=== PATIENT | male | born 1990 | race Caucasian/White ===

== ENCOUNTER 2017-03-18 18:12 | Emergency (ER) | payer OTHER ==
[~2017-03-18] VITALS: Ht 182.9 cm; Wt 114.4 kg
[2017-03-18 18:26] VITALS: TEMP 37; Ht 182.9 cm; Wt 114.4 kg
[2017-03-18] MEDS ORDERED: ONDANSETRON INJ 2 MG/ML 2 ML VIAL IV STA (19:09)
[2017-03-18] MEDS ORDERED: SODIUM CHLORIDE 0.9% 1000ML 1,000 ML IV STA (19:09)
[2017-03-18] MEDS ORDERED: MULT-506 PO (19:23)
[2017-03-18] MEDS ORDERED: LORA10TA5 PO (19:23)
[2017-03-18 19:32] LABS: BASO % 0.5 %; BASO ABS # 0.05 K/uL (0-0.2); COMPLETE YES; EOS % 1.1 %; HEMATOCRIT 48.4 % (42-52); IG% 0.3 %; LYMPH ABS # 2.92 K/uL (1.2-3.4); MEAN CELL VOLUME 85.5 fL (80-100); MEAN CORPUSCULAR HEMOGLOBIN 30.7 pg (25-34); MEAN PLATELET VOLUME 10.1 fL (7.4-10.4); MONO % 9.9 %; NEUT % 61.2 %; PLATELET COUNT 315 K/uL (130-400); RED BLOOD COUNT 5.66 M/uL (4.7-6.1)
[2017-03-18 19:47] LABS: BUN/CREATININE RATIO 13.3 (10-20); POTASSIUM 4.3 mmol/L (3.5-5.1)
--- NOTE | 2017-03-18 19:47 | DIAGNOSTIC IMAGING REPORT ---
CHEST ONE VIEW PORTABLE CLINICAL HISTORY: CHEST PAIN pain COMPARISON STUDY: No previous studies for comparison. FINDINGS: The bones soft tissues and hemidiaphragms are normal. The cardiomediastinal silhouette is normal. The lungs are clear. The pulmonary vasculature is normal. IMPRESSION: Negative chest. Electronically signed by: Toñito Oliveira M.D. 03/18/2017 7:46 PM Dictated Date/Time: 03/18/2017 7:45 PM
[2017-03-18 19:49] LABS: URINE APPEARANCE CLEAR (CLEAR); URINE BILIRUBIN NEG (NEG); URINE COLOR YELLOW; URINE NITRITE NEG (NEG); URINE PH 5.5 (4.5-7.5); URINE SPECIFIC GRAVITY 1.021 (1.000-1.030); UROBILINOGEN NEG (NEG)
[2017-03-18 19:51] LABS: MANUAL MICROSCOPIC REQUIRED? NO; REVIEW REQ? NO
[2017-03-18 19:57] LABS: THYROID STIMULATING HORMONE 2.92 uIu/ml (0.300-4.500)
[2017-03-18 21:11] VITALS: BP 134/88; PULSE 82; O2SAT 98
--- NOTE | 2017-03-19 01:13 | EMERGENCY ROOM VISIT NOTE ---
ED Visit Note First contact with patient: 18:30 Chief Complaint: Headache, lightheaded, nausea and fatigue. History of Present Illness: Mr. Mccollum is a 27-year-old white male who ambulates into the ED accompanied by a female friend complaining of a headache, lightheadedness, nausea and fatigue. Patient reports he has been having intermittent headaches and lightheadedness for approximately one month. He has not followed up with his primary care physician for his symptoms. Patient reports his lightheadedness, nausea and headache exacerbated approximately 4 hours ago and has been constant since. He describes his headache sensation as a throbbing sensation. The headache is global. He has not identified any aggravating or alleviating factors related to his headache. He reports he has not taken any medication for headache prior to arrival at the hospital. Associated with his headache he reports she's been having multiple symptoms but he does report today he had an episode where he felt like he was having a fever and then became diaphoretic, he has been lightheaded especially with head movements and also reports he has been having dizziness with room spinning sensation, he has been nauseated but has not vomited and he is feeling fatigued. He denies skin eruptions, skin color changes, recent head trauma, neck pain/ stiffness, upper respiratory tract symptoms, visual changes, hearing changes, difficulty speaking, difficulty swallowing, difficulty ambulating/coordinating body movements, chest pain, shortness of breath, abdominal pain, extremity weakness/numbness/tingling. Review of Systems: As noted above in history of present illness. All body systems were reviewed and found to be negative as noted above. Past Medical History: Borderline hypertension. Current Medications: Claritin, multivitamins. Allergies to Medications: Patient denies. Social History: Patient is currently employed; he feels safe in his home environment; he denies tobacco and alcohol use. Physical Examination: Vital Signs: Date Time Temp Pulse Resp B/P Pulse Ox O2 Delivery O2 Flow Rate FiO2 03/18/17 21:11 82 18 134/88 98 Room Air 03/18/17 19:29 70 18 160/103 98 Room Air 74 149/103 77 166/79 03/18/17 18:45 63 03/18/17 18:26 37.0 66 18 158/93 99 Room Air GENERAL: 27-year-old male in mild to moderate distress due to symptoms, nontoxic -appearing, afebrile and hemodynamically stable. NEUROLOGICAL: Awake, alert and oriented to person, place and time. Answering questions appropriately and following commands. Normal gait. Good hand eye coordination. No focal motor or sensory deficits. Cranial nerves II through XII grossly intact. Esteban term and long-term recall. SKIN: Warm, dry and pink. No soft tissue eruptions or trauma noted. HEENT: Atraumatic and normocephalic. No erythema or tenderness over the phone or maxillary sinuses. External ears are nontender. Auditory canals are pink and patent. Tympanic membranes pearly ken with normal light reflex. No signs of infection or inflammation. PERRLA. EOMI without nystagmus. Funduscopic examination is unremarkable with a normal-appearing optic disc and no signs of increased intracranial pressure. No signs of hypertension changes. Sclera white and conjunctiva pink. No drainage from naris. Oral cavity moist and pink. Pharynx is nonerythematous or edematous. Speech normal. No lymphadenopathy. Trachea midline. No jugular venous distention. No carotid bruits. BACK: No tenderness over the bony spine. No CVA tenderness. THORAX: Lungs sounds are clear to auscultation and equal bilaterally with symmetrical chest wall. No wheezing, rales or rhonchi. No crepitus, tenderness , subcutaneous air or deformities noted. HEART: Regular rate and rhythm. No gallops, rubs or murmurs are appreciated. PMI is not displaced. No lifts, heaves or thrills. ABDOMEN: Flat, soft and nontender. Positive bowel sounds in all quadrants. No guarding, rigidity or organomegaly. EXTREMITIES: Moves all extremities well on command and with purpose. All distal neurovascular statuses are intact and equal bilaterally. No calf tenderness or cords. ED Course: Patient is assessed as noted above. Laboratory Testing: Test 03/18/17 18:45 03/18/17 19:35 03/18/17 19:37 Range/Units White Blood Count 10.80 4.8-10.8 K/uL Red Blood Count 5.66 4.7-6.1 M/uL Hemoglobin 17.4 14.0-18.0 g/dL Hematocrit 48.4 42-52 % Mean Corpuscular Volume 85.5 80-100 fL Mean Corpuscular Hemoglobin 30.7 25-34 pg Mean Corpuscular Hemoglobin Concent 36.0 32-36 g/dl Platelet Count 315 130-400 K/uL Mean Platelet Volume 10.1 7.4-10.4 fL Neutrophils (%) (Auto) 61.2 % Lymphocytes (%) (Auto) 27.0 % Monocytes (%) (Auto) 9.9 % Eosinophils (%) (Auto) 1.1 % Basophils (%) (Auto) 0.5 % Neutrophils # (Auto) 6.61 1.4-6.5 K/uL Lymphocytes # (Auto) 2.92 1.2-3.4 K/uL Monocytes # (Auto) 1.07 0.11-0.59 K/uL Eosinophils # (Auto) 0.12 0-0.5 K/uL Basophils # (Auto) 0.05 0-0.2 K/uL RDW Standard Deviation 39.2 36.4-46.3 fL RDW Coefficient of Variation 12.5 11.5-14.5 % Immature Granulocyte % (Auto) 0.3 % Immature Granulocyte # (Auto) 0.03 0.00-0.02 K/uL Sodium Level 142 136-145 mmol/L Potassium Level 4.3 3.5-5.1 mmol/L Chloride Level 106 98-107 mmol/L Carbon Dioxide Level 29 21-32 mmol/L Anion Gap 7.0 3-11 mmol/L Blood Urea Nitrogen 13 7-18 mg/dl Creatinine 1.00 0.60-1.40 mg/dl Est Creatinine Clear Calc Drug Dose 142.3 ml/min Estimated GFR () 117.4 Estimated GFR (Non- 101.3 BUN/Creatinine Ratio 13.3 10-20 Random Glucose 87 70-99 mg/dl Calcium Level 9.0 8.5-10.1 mg/dl Total Bilirubin 0.4 0.2-1 mg/dl Direct Bilirubin 0.1 0-0.2 mg/dl Aspartate Amino Transf (AST/SGOT) 23 15-37 U/L Alanine Aminotransferase (ALT/SGPT) 55 12-78 U/L Alkaline Phosphatase 98 45-117 U/L Total Protein 7.9 6.4-8.2 gm/dl Albumin 4.5 3.4-5.0 gm/dl Thyroid Stimulating Hormone (TSH) 2.920 0.300-4.500 uIu/ml Urine Color YELLOW Urine Appearance CLEAR CLEAR Urine pH 5.5 4.5-7.5 Urine Specific [place] 1.021 1.000-1.030 Urine Protein NEG NEG Urine Glucose (UA) NEG NEG Urine Ketones NEG NEG Urine Occult Blood NEG NEG Urine Nitrite NEG NEG Urine Bilirubin NEG NEG Urine Urobilinogen NEG NEG Urine Leukocyte Esterase NEG NEG Bedside Troponin I 0.000 0-0.045 ng/ml EKG: Was read by myself and Dr. Mckeon; shows normal sinus rhythm with sinus arrhythmia. Ventricular rate 68 bpm. Normal axis, intervals and complexes. No acute ST changes indicating ischemia, injury or infarction. Medical records were reviewed and no additional EKGs were found for comparison. Chest X-Ray: Was read by myself and the radiologist and shows no acute infiltrates, effusions or pneumothorax. Normal heart silhouette and bony anatomy. Patient was hydrated with normal saline and received 4 mg of Zofran IV for nausea. Patient was reassessed multiple times during his stay in the emergency department. Patient's case was reviewed with Dr. Mckeon; we agreed on diagnostic approach, treatment, disposition and plan. Patient was educated about today's findings and instructed on his treatment plan ; he verbalizes understanding and agreement with this plan. Clinical Impression: Hypertension. Dizziness. Nausea. Headache. Decision-Making: Initially my differential diagnosis I considered intracranial bleed, mass effect, intracranial swelling, injury or infection, hypertension, migraine equivalent, meningitis, and other concerning conditions. Disposition: Patient discharged home in stable condition; prior to departure he was reassessed and subjectively reported he had resolution of headache and nausea but still felt slightly dizzy. Plan: Patient was encouraged to stay well hydrated. Patient was encouraged use ibuprofen or acetaminophen as needed for pain. Patient was encouraged to follow-up with his PCP for recheck and further evaluation of his hypertension. Patient was encouraged return the ED for worsening symptoms, any new abnormal neurological symptoms or any new/concerning symptoms.
== END 2017-03-18 21:17 | disposition home or self-care (01) ==
LOC: C.EDB 18:14
DX: I10 Essential (primary) hypertension (principal); R42 Dizziness and giddiness; R11.0 Nausea; R51 Headache

== ENCOUNTER 2017-04-08 21:48 | Emergency (ER) | payer OTHER ==
[~2017-04-08] VITALS: Ht 182.9 cm; Wt 111.5 kg
[~2017-04-08 21:48] MED LIST: LORA10TA5 PO; MULT-506 PO
[2017-04-08 21:52] VITALS: TEMP 37; Ht 182.9 cm; Wt 111.5 kg
[2017-04-08 22:07] VITALS: O2SAT 97
[2017-04-08] MEDS ORDERED: LISI-461 PO (22:39)
[2017-04-08 22:41] LABS: BASO % 0.3 %; BASO ABS # 0.04 K/uL (0-0.2); COMPLETE YES; EOS % 0.6 %; HEMATOCRIT 46.2 % (42-52); IG% 0.2 %; LYMPH % 23.6 %; LYMPH ABS # 2.97 K/uL (1.2-3.4); MEAN CELL VOLUME 85.1 fL (80-100); MEAN CORPUSCULAR HEMOGLOBIN 30.4 pg (25-34); MEAN CORPUSCULAR HGB CONC 35.7 g/dl (32-36); MEAN PLATELET VOLUME 9.1 fL (7.4-10.4); MONO % 9.7 %; NEUT % 65.6 %; PLATELET COUNT 324 K/uL (130-400); RED BLOOD COUNT 5.43 M/uL (4.7-6.1)
[2017-04-08 22:59] LABS: ALT/SGPT 55 U/L (12-78); BLOOD UREA NITROGEN 14 mg/dl (7-18); BUN/CREATININE RATIO 10.8 (10-20); CARBON DIOXIDE 25 mmol/L (21-32); CHLORIDE 105 mmol/L (98-107); GLUCOSE 96 mg/dl (70-99); POTASSIUM 3.8 mmol/L (3.5-5.1); SODIUM 142 mmol/L (136-145)
[2017-04-08 23:01] LABS: CALCIUM 8.8 mg/dl (8.5-10.1)
[2017-04-08 23:10] LABS: ALKALINE PHOSPHATASE 79 U/L (45-117); AST/SGOT 22 U/L (15-37)
--- NOTE | 2017-04-08 23:13 | DIAGNOSTIC IMAGING REPORT ---
CT OF THE HEAD WITHOUT CONTRAST CLINICAL HISTORY: Weakness. Dizziness. COMPARISON STUDY: No previous studies for comparison. CT DOSE: 614.27 mGy.cm TECHNIQUE: Helical axial images of the head were obtained without IV contrast. Automated exposure control was utilized for the study. FINDINGS: No acute intracranial hemorrhage, midline shift or mass effect is present. Ventricular system is normal. Basilar cisterns are patent. There are no extra-axial collections. Lyon-white differentiation is maintained. There are no findings to suggest acute dural sinus thrombosis or acute territorial infarct. There are no calvarial abnormalities. Visualized portions of the sinuses and the mastoid air cells are clear. IMPRESSION: No acute intracranial findings. Electronically signed by: Denis Cox M.D. 04/08/2017 11:11 PM Dictated Date/Time: 04/08/2017 11:09 PM
[2017-04-08 23:30] LABS: URINE APPEARANCE CLEAR (CLEAR); URINE BILIRUBIN NEG (NEG); URINE COLOR YELLOW; URINE NITRITE NEG (NEG); UROBILINOGEN NEG (NEG)
[2017-04-08 23:33] LABS: MANUAL MICROSCOPIC REQUIRED? NO; REVIEW REQ? NO
[2017-04-09 00:02] VITALS: BP 140/80; PULSE 78; O2SAT 99
--- NOTE | 2017-04-09 01:19 | EMERGENCY ROOM VISIT NOTE ---
History Report prepared by Jacki: Delaney Mclain Under the Supervision of: Dr. Pako Mckeon D.O. First contact with patient: 22:15 Chief Complaint: DIZZY Stated Complaint: LIGHTHEADED,DIZZY,CHESTPAIN,HEAVY FEELING,NAUSEA,C Nursing Triage Summary: c/o high blood pressure. c/o feeling dizzy at time today. History of Present Illness The patient is a 27 year old male who presents to the Emergency Room with complaints of persistent dizziness starting 2 months ago. The dizziness worsens when he moves his head. The patient was in the ED 1 month ago with high blood pressure. He followed up with his PCP and was started on lisinopril. His blood pressure has been under control since then, but the past weekend his blood pressure has been elevated. 2 days ago, he started having SOB. He also has a nonproductive cough. Today around 1600 he started having chest heaviness. He was just sitting when it started. There is also an intermittent stabbing pain on his right chest. His chest pain worsens with exhaling. Nothing improves his chest pain. He denies any ringing in his ears, changes in vision, calf swelling , weakness, numbness, or rhinorrhea. He denies any recent surgery, travel, estrogen use, or smoking. He denies any history of cancer, blood clots, diabetes , high cholesterol, or heart disease. He denies any family history of sudden . Source of History: patient Onset: 2 months ago Position: other (global) Quality: other (dizziness) Timing: other (persistent) Modifying Factors (Worsening): other (moving head) Associated Symptoms: + cough, + chest pain, + SOB, No weakness, No numbness Note: Pt reports high blood pressure. Pt denies ringing in ears, vision changes, calf swelling, rhinorrhea. Review of Systems See HPI for pertinent positives & negatives. A total of 10 systems reviewed and were otherwise negative. Past Medical & Surgical Medical Problems: (1) Hypertension Family History Diabetes mellitus Hypertension Social History Smoking Status: Never Smoker Housing Status: lives alone Occupation Status: employed Current/Historical Medications Scheduled Lisinopril (Zestril), 10 MG PO DAILY Multivitamin (Multivitamin), 1 TAB PO DAILY Scheduled PRN Loratadine (Claritin), 10 MG PO DAILY PRN for Allergy Symptoms Allergies Coded Allergies: No Known Allergies (Unverified , 03/18/17) Physical Exam Vital Signs Date Time Temp Pulse Resp B/P (MAP) Pulse Ox O2 Delivery O2 Flow Rate FiO2 04/09/17 00:02 78 18 140/80 99 Room Air 04/08/17 23:17 81 18 143/88 96 Room Air 04/08/17 22:47 74 18 133/92 98 Room Air 04/08/17 22:46 68 18 134/76 74 133/92 83 147/86 04/08/17 22:09 68 04/08/17 22:08 68 18 147/101 98 Room Air 04/08/17 22:07 97 Room Air 04/08/17 21:52 37.0 68 18 168/81 100 Room Air Physical Exam GENERAL: sitting up in bed, disheveled, no acute distress, nontoxic EYE EXAM: normal conjunctiva, PERRL and EOM's intact OROPHARYNX: no exudate, no erythema, lips, buccal mucosa, and tongue normal and mucous membranes are moist NECK: supple, no nuchal rigidity, no adenopathy, non-tender LUNGS: Clear to auscultation. Normal chest wall mechanics HEART: no murmurs, S1 normal and S2 normal ABDOMEN: abdomen soft, non-tender, normo-active bowel sounds, no masses, no rebound or guarding. BACK: Back is symmetrical on inspection and there is no deformity, no midline tenderness, no CVA tenderness. SKIN: no rashes and no bruising UPPER EXTREMITIES: upper extremities are grossly normal. LOWER EXTREMITIES: No pitting edema. NEURO EXAM: Normal sensorium, cranial nerves II-XII intact, normal speech, no weakness of arms, no weakness of legs. No drift. Finger to nose intact. Gross sensation intact. Medical Decision & Procedures ER Provider Diagnostic Interpretation: Radiology results as stated below per my review and the radiologist's interpretation: CT OF THE HEAD WITHOUT CONTRAST CLINICAL HISTORY: Weakness. Dizziness. COMPARISON STUDY: No previous studies for comparison. CT DOSE: 614.27 mGy.cm TECHNIQUE: Helical axial images of the head were obtained without IV contrast. Automated exposure control was utilized for the study. FINDINGS: No acute intracranial hemorrhage, midline shift or mass effect is present. Ventricular system is normal. Basilar cisterns are patent. There are no extra-axial collections. Lyon-white differentiation is maintained. There are no findings to suggest acute dural sinus thrombosis or acute territorial infarct. There are no calvarial abnormalities. Visualized portions of the sinuses and the mastoid air cells are clear. IMPRESSION: No acute intracranial findings. Electronically signed by: Denis Cox M.D. 04/08/2017 11:11 PM Dictated Date/Time: 04/08/2017 11:09 PM Laboratory Results 04/08/17 22:10 Red Blood Count 5.43, Mean Corpuscular Volume 85.1, Mean Corpuscular Hemoglobin 30.4, Mean Corpuscular Hemoglobin Concent 35.7, Mean Platelet Volume 9.1, Neutrophils (%) (Auto) 65.6, Lymphocytes (%) (Auto) 23.6, Monocytes (%) (Auto) 9.7, Eosinophils (%) (Auto) 0.6, Basophils (%) (Auto) 0.3, Neutrophils # (Auto) 8.27, Lymphocytes # (Auto) 2.97, Monocytes # (Auto) 1.22, Eosinophils # (Auto) 0.08, Basophils # (Auto) 0.04 04/08/17 22:10 Test 04/08/17 22:10 04/08/17 23:15 White Blood Count 12.60 K/uL (4.8-10.8) Red Blood Count 5.43 M/uL (4.7-6.1) Hemoglobin 16.5 g/dL (14.0-18.0) Hematocrit 46.2 % (42-52) Mean Corpuscular Volume 85.1 fL (80-100) Mean Corpuscular Hemoglobin 30.4 pg (25-34) Mean Corpuscular Hemoglobin Concent 35.7 g/dl (32-36) Platelet Count 324 K/uL (130-400) Mean Platelet Volume 9.1 fL (7.4-10.4) Neutrophils (%) (Auto) 65.6 % Lymphocytes (%) (Auto) 23.6 % Monocytes (%) (Auto) 9.7 % Eosinophils (%) (Auto) 0.6 % Basophils (%) (Auto) 0.3 % Neutrophils # (Auto) 8.27 K/uL (1.4-6.5) Lymphocytes # (Auto) 2.97 K/uL (1.2-3.4) Monocytes # (Auto) 1.22 K/uL (0.11-0.59) Eosinophils # (Auto) 0.08 K/uL (0-0.5) Basophils # (Auto) 0.04 K/uL (0-0.2) RDW Standard Deviation 37.7 fL (36.4-46.3) RDW Coefficient of Variation 12.2 % (11.5-14.5) Immature Granulocyte % (Auto) 0.2 % Immature Granulocyte # (Auto) 0.02 K/uL (0.00-0.02) D-Dimer < 190 ug/L FEU (0-500) Anion Gap 12.0 mmol/L (3-11) Est Creatinine Clear Calc Drug Dose 108.1 ml/min Estimated GFR () 85.5 Estimated GFR (Non- 73.7 BUN/Creatinine Ratio 10.8 (10-20) Calcium Level 8.8 mg/dl (8.5-10.1) Total Bilirubin 0.7 mg/dl (0.2-1) Direct Bilirubin 0.1 mg/dl (0-0.2) Aspartate Amino Transf (AST/SGOT) 22 U/L (15-37) Alanine Aminotransferase (ALT/SGPT) 55 U/L (12-78) Alkaline Phosphatase 79 U/L (45-117) Troponin I < 0.015 ng/ml (0-0.045) Total Protein 7.9 gm/dl (6.4-8.2) Albumin 4.2 gm/dl (3.4-5.0) Thyroid Stimulating Hormone (TSH) 2.380 uIu/ml (0.300-4.500) Urine Color YELLOW Urine Appearance CLEAR (CLEAR) Urine pH 5.0 (4.5-7.5) Urine Specific [place] 1.020 (1.000-1.030) Urine Protein NEG (NEG) Urine Glucose (UA) NEG (NEG) Urine Ketones TRACE (NEG) Urine Occult Blood NEG (NEG) Urine Nitrite NEG (NEG) Urine Bilirubin NEG (NEG) Urine Urobilinogen NEG (NEG) Urine Leukocyte Esterase NEG (NEG) Laboratory results per my review. ECG Indication: chest pain Rate (beats per minute): 66 Rhythm: sinus rhythm Findings: no ectopy, other (poor baseline in inferior leads) ED Course ED COURSE: Vital signs were reviewed and showed hypertension. The patients medical record was reviewed The above diagnostic studies were performed and reviewed. ED treatments and interventions as stated above. 2219: The patient was evaluated in room C8. A complete history and physical examination was performed. 2352: Upon reevaluation, the patient is resting comfortably.I discussed my findings with the patient and he understands and agrees with the treatment plan. Based on the patients age, coexisting illnesses, exam and lab findings the decision to treat as an outpatient was made. The patient remained stable while under my care. The patient appeared well at the time of discharge. Medical Decision Differenital diagnosis includes etiologies such as benign positional vertigo, dehydration, hypovolemia, anemia, tumor, infection, hypoglycemia, electrolyte abnormalities, cardiac sources, intracerebral event, toxicologic, neurologic, as well as others were entertained. Medication Reconciliation: I attest that I have personally reviewed the patient' s current medication list. Blood pressure screening: Patient was found to have an elevated blood pressure and was referred to their primary doctor for recheck and further treatment. Patient is a 27-year-old male who presents the ER for feeling dizzy/ lightheadedness which has been coming and going for the past 2 months. He notes his head feels a little bit of a pressure. He does admit to some right- sided chest pain which is worse with breathing. He has a history of hypertension. Patient denies a history of diabetes, CAD, hyperlipidemia, or sudden with family at a young age. He also denies smoking, recent travel , recent surgeries, previous blood clots, history cancer, or estrogen use. Patient was fully neurologically intact on exam. He was slightly hypertensive in the 140s. CT head was negative. CBC along with BMP, LFTs, bilirubin and troponin were negative. EKG was unremarkable. TSH was normal. UA was negative. D-dimer was negative. Patient was discharged follow-up with his primary care doctor. I do not feel need to treat his blood pressure is a was only in the 140s. He was completely neurologically intact. Do not believe this stroke. No signs of meningitis or encephalitis. Discussed with Pt concerning signs and symptoms to watch out for. Pt was instructed to follow up with their PCP and discussed with the patient their option to return to the ED at anytime for persistent or worsening symptoms. The appropriate anticipatory guidance and out-patient management, including indications for return to the emergency department, were explained at length to the patient and understood. Impression Primary Impression: Dizziness Additional Impression: Hypertension Scribe Attestation The scribe's documentation has been prepared under my direction and personally reviewed by me in its entirety. I confirm that the note above accurately reflects all work, treatment, procedures, and medical decision making performed by me. Departure Information Dispostion Home / Self-Care Referrals Tuan Whitehead M.D. (PCP) Forms HOME CARE DOCUMENTATION FORM, IMPORTANT VISIT INFORMATION Patient Instructions ED Dizziness O, My [facility] Additional Instructions Please follow up with your primary care doctor or if you are a student [facility] [employer] with in the next 24 hours. Any worsening of your symptoms, please return to the ED immediately. This includes fevers greater than 100.4, stiff neck, passing out, new or worsening shortness of breath, new or worsening chest pain, or any other concerning signs or symptoms from your standpoint. Please continue your current medications as previously prescribed. Problem Qualifiers Additional Impression: Hypertension Hypertension type: unspecified secondary hypertension Qualified Codes: I15.9 - Secondary hypertension, unspecified
== END 2017-04-09 00:02 | disposition home or self-care (01) ==
LOC: C.EDB 21:49 → C.EDC 04-09 00:02
DX: R42 Dizziness and giddiness (principal); I15.9 Secondary hypertension, unspecified; R06.02 Shortness of breath; Z83.3 Family history of diabetes mellitus; Z82.49 Family history of ischemic heart disease and other diseases of the circulatory system

== ENCOUNTER 2017-04-13 02:19 | Emergency (ER) | payer OTHER ==
[~2017-04-13] VITALS: Ht 182.9 cm; Wt 114.4 kg
[~2017-04-13 02:19] MED LIST changes: +LISI-461 PO
[2017-04-13 02:25] VITALS: TEMP 36.5; Ht 182.9 cm; Wt 114.4 kg
[2017-04-13] MEDS ORDERED: MoRPHine SULFATE 10 MG/ML CARP/VIAL IV STA (03:02)
[2017-04-13 03:38] LABS: BASO % 0.3 %; BASO ABS # 0.04 K/uL (0-0.2); COMPLETE YES; EOS % 0.1 %; HEMATOCRIT 45.1 % (42-52); IG% 0.9 %; LYMPH ABS # 2.32 K/uL (1.2-3.4); MEAN CELL VOLUME 85.3 fL (80-100); MEAN CORPUSCULAR HEMOGLOBIN 31.4 pg (25-34); MEAN CORPUSCULAR HGB CONC 36.8 g/dl (32-36); MEAN PLATELET VOLUME 9.7 fL (7.4-10.4); MONO % 6.6 %; NEUT % 77.1 %; PLATELET COUNT 321 K/uL (130-400); RED BLOOD COUNT 5.29 M/uL (4.7-6.1); WHITE BLOOD COUNT 15.49 K/uL (4.8-10.8)
[2017-04-13 04:16] LABS: BENZODIAZEPINE, URINE NEG (NEG); COCAINE,URINE NEG (NEG); PHENCYCLIDINE, URINE NEG (NEG)
[2017-04-13 06:09] VITALS: BP 140/82; O2SAT 97
[2017-04-13 06:11] VITALS: PULSE 67
[2017-04-13 06:17] LABS: ISTAT CREATININE 0.9 mg/dl (0.6-1.3); ISTAT IONIZED CALCIUM 1.21 mmol/l (1.12-1.32)
--- NOTE | 2017-04-13 06:35 | EMERGENCY ROOM VISIT NOTE ---
History First contact with patient: 02:40 Chief Complaint: SHORTNESS OF BREATH Stated Complaint: SOB,DIZZY,BACK PAIN,JOINT PAIN Nursing Triage Summary: Pt's cousin at bedside. Pt is hyperventilating. Having patient concentrate and his breathing. Pt's cousin reports that his lower back has been hurting for the past few days and has been having SOB on and off for about 2 months. Denies any injury. History of Present Illness The patient is a 27 year old male who presents to the Emergency Room with complaints of dizziness and shortness of breath for the past 2 months. The patient states he has had these symptoms ongoing for the past 2 months and has been evaluated here twice. He has been seen by his primary care provider and was initially started on lisinopril for hypertension. He suddenly recently and was put on prednisone for a possible inner ear infection. The patient states that tonight, he developed low back pain and also reports left shoulder pain. He rates his discomfort a 9/10. He states that he came here tonight due to low back pain. He denies any chest pain, abdominal pain, headache or neck pain. He denies any fevers/chills. Review of Systems A complete 10 point review of systems was reviewed with the patient with pertinent positives and negatives as per history of present illness. All else were negative. Past Medical/Surgical History Medical Problems: (1) Hypertension Family History Diabetes mellitus Hypertension Social History Smoking Status: Never Smoker Housing Status: lives alone Occupation Status: employed Current/Historical Medications Scheduled Lisinopril (Zestril), 10 MG PO DAILY Multivitamin (Multivitamin), 1 TAB PO DAILY Scheduled PRN Loratadine (Claritin), 10 MG PO DAILY PRN for Allergy Symptoms Allergies Coded Allergies: No Known Allergies (Unverified , 04/13/17) Physical Exam Vital Signs Date Time Temp Pulse Resp B/P (MAP) Pulse Ox O2 Delivery O2 Flow Rate FiO2 04/13/17 06:11 67 04/13/17 06:09 73 17 140/82 97 Room Air 04/13/17 04:16 77 14 146/84 97 Room Air 04/13/17 02:59 97 04/13/17 02:49 Room Air 04/13/17 02:25 36.5 89 18 158/95 100 Room Air Physical Exam VITALS: Vitals are noted on the nurse's note and reviewed by myself. Vital signs stable. GENERAL: This is a 27-year-old male anxious appearing, hyperventilating, nondiaphoretic, well-developed well-nourished. SKIN: The skin was without rashes, erythema, edema, or bruising. HEAD: Normocephalic atraumatic. EARS: External auditory canals clear, tympanic membranes pearly ken without erythema or effusion bilaterally. EYES: Pupils equal round and reactive to light and accommodation. Conjunctivae without injection, sclerae without icterus. Extraocular movements intact. MOUTH: Mucous membranes moist. Tonsils are not enlarged. Pharynx without erythema or exudate. NECK: Supple without nuchal rigidity. No lymphadenopathy. HEART: Regular rate and rhythm without murmurs gallops or rubs. LUNGS: Clear to auscultation bilaterally without wheezes, rales or rhonchi. ABDOMEN: Soft, nontender to palpation. MUSCULOSKELETAL: Vague lumbar tenderness. No tenderness over the lumbar spinous processes. NEURO: Patient was alert and oriented to person place and time. Normal sensation to light and sharp touch. Medical Decision & Procedures ER Provider Diagnostic Interpretation: CHEST X-RAY: No acute cardiopulmonary process. LUMBAR SPINE X-RAY: No acute fracture or dislocation within the lumbar spine. Laboratory Results 04/13/17 03:25 Red Blood Count 5.29, Mean Corpuscular Volume 85.3, Mean Corpuscular Hemoglobin 31.4, Mean Corpuscular Hemoglobin Concent 36.8, Mean Platelet Volume 9.7, Neutrophils (%) (Auto) 77.1, Lymphocytes (%) (Auto) 15.0, Monocytes (%) (Auto) 6.6, Eosinophils (%) (Auto) 0.1, Basophils (%) (Auto) 0.3, Neutrophils # (Auto) 11.95, Lymphocytes # (Auto) 2.32, Monocytes # (Auto) 1.03, Eosinophils # (Auto) 0.01, Basophils # (Auto) 0.04 04/13/17 05:55 Test 04/13/17 03:25 04/13/17 03:35 04/13/17 05:55 04/13/17 06:03 White Blood Count 15.49 K/uL (4.8-10.8) Red Blood Count 5.29 M/uL (4.7-6.1) Hemoglobin 16.6 g/dL (14.0-18.0) Hematocrit 45.1 % (42-52) Mean Corpuscular Volume 85.3 fL (80-100) Mean Corpuscular Hemoglobin 31.4 pg (25-34) Mean Corpuscular Hemoglobin Concent 36.8 g/dl (32-36) Platelet Count 321 K/uL (130-400) Mean Platelet Volume 9.7 fL (7.4-10.4) Neutrophils (%) (Auto) 77.1 % Lymphocytes (%) (Auto) 15.0 % Monocytes (%) (Auto) 6.6 % Eosinophils (%) (Auto) 0.1 % Basophils (%) (Auto) 0.3 % Neutrophils # (Auto) 11.95 K/uL (1.4-6.5) Lymphocytes # (Auto) 2.32 K/uL (1.2-3.4) Monocytes # (Auto) 1.03 K/uL (0.11-0.59) Eosinophils # (Auto) 0.01 K/uL (0-0.5) Basophils # (Auto) 0.04 K/uL (0-0.2) RDW Standard Deviation 38.2 fL (36.4-46.3) RDW Coefficient of Variation 12.4 % (11.5-14.5) Immature Granulocyte % (Auto) 0.9 % Immature Granulocyte # (Auto) 0.14 K/uL (0.00-0.02) D-Dimer < 190 ug/L FEU (0-500) Urine Opiates Screen NEG (NEG) Urine Methadone, Qualitative NEG (NEG) Urine Barbiturates NEG (NEG) Urine Phencyclidine (PCP) Level NEG (NEG) Ur Amphetamine/Methamphetamine NEG (NEG) MDMA (Ecstasy) Screen NEG (NEG) Urine Benzodiazepines Screen NEG (NEG) Urine Cocaine Metabolite NEG (NEG) Urine Marijuana (THC) NEG (NEG) Est Creatinine Clear Calc Drug Dose 143.8 ml/min Estimated GFR () 118.8 Estimated GFR (Non- 102.5 BUN/Creatinine Ratio 15.8 (10-20) Calcium Level 8.6 mg/dl (8.5-10.1) Magnesium Level 2.2 mg/dl (1.8-2.4) Total Bilirubin 0.2 mg/dl (0.2-1) Aspartate Amino Transf (AST/SGOT) 18 U/L (15-37) Alanine Aminotransferase (ALT/SGPT) 51 U/L (12-78) Alkaline Phosphatase 105 U/L (45-117) Total Creatine Kinase 74 U/L (39-308) Troponin I < 0.015 ng/ml (0-0.045) Total Protein 7.8 gm/dl (6.4-8.2) Albumin 4.2 gm/dl (3.4-5.0) Globulin 3.6 gm/dl (2.5-4.0) Albumin/Globulin Ratio 1.2 (0.9-2) Thyroid Stimulating Hormone (TSH) 1.090 uIu/ml (0.300-4.500) Chemistry Specimen Hemolysis Bedside Hemoglobin 16.0 g/dl (14.0-18.0) Bedside Hematocrit 47 % (42-52) Bedside Sodium 143 mEq/L (135-144) Bedside Potassium 4.0 mEq/L (3.3-5.0) Bedside Chloride 104 mEq/L (101-112) Bedside Total CO2 24 mEq/l (24-31) Anion Gap 19.0 mmol/L (16-25) Bedside Blood Urea Nitrogen 16 mg/dl (7-18) Bedside Creatinine 0.9 mg/dl (0.6-1.3) Bedside Glucose (other) 101 mg/dl (70-99) Bedside Ionized Calcium (Rupa) 1.21 mmol/l (1.12-1.32) Medications Administered Medications (Trade) Dose Ordered Sig/Gretta Route Start Time Stop Time Status Last Admin Dose Admin Morphine Sulfate (MoRPHine SULFATE INJ) 6 mg NOW STAT IV 04/13/17 03:02 04/13/17 03:06 DC 04/13/17 03:35 6 MG ECG Rate (beats per minute): 70 Rhythm: normal sinus Findings: no acute ischemic change, no ectopy Change: no significant change ED Course The patient was evaluated as above. Labs were drawn and IV access was obtained. Patient was medicated with 6 mg morphine for his back pain. Patient was reevaluated and felt much better. Discharge instructions were reviewed with the patient. The patient verbalized understanding of my assessment and treatment plan and was discharged home in good condition. Medical Decision Differential diagnosis includes pulmonary embolism, viral illness, infection, metabolic abnormality, anxiety, among others. The patient is a 27-year-old male who presents today complaining of shortness of breath and dizziness for the past month. He is also complaining of back pain which is new for him. Labs revealed a leukocytosis likely secondary to recent steroid use. No anemia or concerning electrolyte abnormalities. D- dimer was not elevated. Troponin was not elevated. Tox screen was negative. EKG was interpreted by myself and shows a normal sinus rhythm. Chest x-ray is unremarkable. Due to the patient's complaint of back pain, a lumbar spine x- ray was ordered and shows no acute fractures or dislocations. The patient's vital signs are within normal limits. On my initial evaluation, the patient seemed to be hyperventilating and refused to answer several questions. After receiving pain medication, he did seem much better. I feel there is likely a component of anxiety to the patient's symptoms and did discuss this with the patient. The patient has had multiple workups for his ongoing shortness of breath and dizziness. I do feel that he is safe to be discharged home to follow-up with his primary care provider for further evaluation of symptoms. The patient's case was reviewed with Dr. Benítez, ED attending physician, who agreed with my assessment and treatment plan. Based on the patient's presentation and work up, I feel the patient is stable for outpatient treatment. The patient was educated to return to the emergency department for any worsening of their current condition or new/concerning symptoms. He will follow up with his PCP. Medication reconciliation: I attest that I have personally reviewed the patient 's current medication list. Blood pressure screening: Patient was found to have an elevated blood pressure and was referred to their primary care provider for recheck and further treatment. Impression Primary Impression: Dizziness Additional Impression: Lumbar back pain Departure Information Dispostion Home / Self-Care Condition GOOD Referrals Tuan Whitehead M.D. (PCP) Patient Instructions My [facility] Additional Instructions For pain control, you can use the following [id number] medicines (if >12 yo): - Regular strength (325mg/tab) Tylenol (acetaminophen) 2 tabs every 4-6 hours as needed. Do not exceed 12 tablets in a 24 hour period. Avoid taking more than 4 grams (4000 mg) of Tylenol per day. This includes any other sources of acetaminophen you may take on a regular basis. - Regular strength (200 mg/tab) Advil (ibuprofen) 1-2 tabs every 4-6 hours as needed. Do not exceed a dose of 3200 mg per day. Rest and drink plenty of fluids. Follow-up with your primary care provider as soon as possible. Return to the emergency department with any worsening or new/concerning symptoms. Problem Qualifiers
[2017-04-13 06:41] LABS: ALT/SGPT 51 U/L (12-78); AST/SGOT 18 U/L (15-37); BLOOD UREA NITROGEN 16 mg/dl (7-18); BUN/CREATININE RATIO 15.8 (10-20); CALCIUM 8.6 mg/dl (8.5-10.1); CARBON DIOXIDE 24 mmol/L (21-32); CHLORIDE 109 mmol/L (98-107); CREATININE 0.99 mg/dl (0.60-1.40); GLUCOSE 93 mg/dl (70-99); MAGNESIUM 2.2 mg/dl (1.8-2.4); POTASSIUM 4.1 mmol/L (3.5-5.1); SODIUM 142 mmol/L (136-145)
--- NOTE | 2017-04-13 06:45 | DIAGNOSTIC IMAGING REPORT ---
CHEST ONE VIEW PORTABLE CLINICAL HISTORY: shortness of breath dyspnea COMPARISON STUDY: 03/18/2017 FINDINGS: The bones soft tissues and hemidiaphragms are normal. The cardiomediastinal silhouette is normal. The lungs are clear. The pulmonary vasculature is normal. IMPRESSION: Negative chest. Electronically signed by: Toñito Oliveira M.D. 04/13/2017 6:43 AM Dictated Date/Time: 04/13/2017 6:43 AM
[2017-04-13 06:46] LABS: ALB/GLOB RATIO 1.2 (0.9-2); ALKALINE PHOSPHATASE 105 U/L (45-117)
--- NOTE | 2017-04-13 06:46 | DIAGNOSTIC IMAGING REPORT ---
LUMBAR SPINE 5 VIEWS HISTORY: Pain low back pain COMPARISON: None. FINDINGS: There is no fracture. No subluxation. Disc spaces are preserved. IMPRESSION: No fracture or subluxation within the lumbar spine. Electronically signed by: Toñito Oliveira M.D. 04/13/2017 6:45 AM Dictated Date/Time: 04/13/2017 6:44 AM
== END 2017-04-13 06:38 | disposition home or self-care (01) ==
LOC: C.EDB 02:20 → C.EDA 06:38
DX: R42 Dizziness and giddiness (principal); M54.5 Low back pain; I10 Essential (primary) hypertension; Z83.3 Family history of diabetes mellitus; Z82.49 Family history of ischemic heart disease and other diseases of the circulatory system